=== PATIENT | male | born 1965 | race Caucasian/White ===

== ENCOUNTER 2020-07-25 13:21 | Emergency (ER) | payer OTHER | END 2020-07-25 13:38 | disposition home or self-care (01) | LOC: JVIRT 13:21 | DX: Z03.818 Encounter for observation for suspected exposure to other biological agents ruled out (principal) | CPT/HCPCS: C9803; Q3014-GT; U0003 ==

== ENCOUNTER 2020-08-20 13:19 | Emergency (ER) | payer OTHER | END 2020-08-20 14:33 | disposition home or self-care (01) | LOC: JVIRT 13:19 | DX: Z03.818 Encounter for observation for suspected exposure to other biological agents ruled out (principal) | CPT/HCPCS: C9803; G2012-GT; U0003 ==

== ENCOUNTER 2020-10-03 13:49 | Emergency (ER) | payer OTHER | END 2020-10-03 14:33 | disposition home or self-care (01) | LOC: JVIRT 13:49 | DX: Z20.822 Contact with and (suspected) exposure to COVID-19 (principal) | CPT/HCPCS: C9803; G2012-GT; U0003 ==